=== PATIENT | female | born 1940 | race Caucasian/White ===

== ENCOUNTER 2021-08-04 08:18 | Day surgery (SDC) | payer OTHER, SELFPAY ==
[2021-07-28 14:26] VITALS: BMI 27.3
--- NOTE | 2021-07-31 12:50 | MHC.SHP ---
Pre-Procedural Eval Section A Date of Service: 07/31/21 The patient is an INPATIENT: No Changes since office visit: No Cold of Flu in the past 2 weeks, No New Medical Problems, No Changes in Medication and No Patient answered all questions The History & Physical has been completed within 30 days and I have reviewed it.: Yes Section B Chief Complaint: cataract right eye Allergies: Allergies Allergy/AdvReac Type Severity Reaction Status Date / Time No Known Allergies Allergy Verified 07/28/21 14:16 Plan Diagnosis/Plan: Unchanged I have reviewed the history and physical and performed a pertinent physical examination on my patient. No changes have occurred unless specified.
--- NOTE | 2021-08-01 09:15 | P.CONAN_ITS ---
Documented by User: Naina Hernandez NP 08/01/21 09:15 HPI - Anesthesia Eval Consult details Narrative: 80yo F for Right Cataract Multifocal with IOL Insertion PCP cleared No prev cataract on record [facility] Past Medical History Medical History (Updated 07/28/21 @ 14:29 by Ellyn Richmond RN) COVID-19 vaccine series completed Patient denies medical problems Surgical History Surgical History (Updated 07/28/21 @ 14:14 by Ellyn Richmond RN) H/O colonoscopy Hx of breast biopsy Social History Social History Are you a primary career placement specialist to a significant other at home: No Do you presently have visiting nurse or other home services: No Patient Tobacco Use Status: Never used Tobacco Use of substances other than those prescribed or required for medical reasons: No Have you been hit, kicked, punched, or otherwise hurt by someone within the past year? If so, by whom?: No Are you DNR?: No Advance Directives: No Advance Directives Information Provided: Yes Advance Directives on File: No Recently lost weight without trying: No Eating poorly because of decreased appetite: No Nutrition Risks: Surgical patient >75years Poor oral hygiene: No Meds Allergies Allergy/AdvReac Type Severity Reaction Status Date / Time No Known Allergies Allergy Verified 07/28/21 14:16 Home Medications Medication Instructions Recorded Confirmed Last Taken Type multivitamin 1 tab PO DAILY 07/28/21 07/28/21 Unknown History omega-3 fatty acids-fish oil 684 1 cap PO DAILY 07/28/21 07/28/21 Unknown History mg-1,200 mg capsule,delayed release Exam Exam Date and Time: August 01, 2021 0915 Height,Weight and Vital Signs: Height 5 ft 2.5 in Weight 68.946 kg Assessment and Plan Assessment Anesthesia Assessment: Chart Reviewed Documented by User: Delvin Hendrickson MD 08/04/21 10:30 [facility] Past Medical History Medical History (Updated 07/28/21 @ 14:29 by Ellyn Richmond RN) COVID-19 vaccine series completed Patient denies medical problems Family History Family history of problems with anesthesia: No Surgical History Surgical History (Updated 07/28/21 @ 14:14 by Ellyn Richmond RN) H/O colonoscopy Hx of breast biopsy History of Problems with Anesthesia: No Social History Social History Are you a primary career placement specialist to a significant other at home: No Do you presently have visiting nurse or other home services: No Patient Tobacco Use Status: Never used Tobacco Use of substances other than those prescribed or required for medical reasons: No Have you been hit, kicked, punched, or otherwise hurt by someone within the past year? If so, by whom?: No Are you DNR?: No Advance Directives: No Advance Directives Information Provided: Yes Advance Directives on File: No Recently lost weight without trying: No Eating poorly because of decreased appetite: No Nutrition Risks: Surgical patient >75years Poor oral hygiene: No Meds Allergies Allergy/AdvReac Type Severity Reaction Status Date / Time No Known Allergies Allergy Verified 07/28/21 14:16 Home Medications Medication Instructions Recorded Confirmed Last Taken Type multivitamin 1 tab PO DAILY 07/28/21 07/28/21 Unknown History omega-3 fatty acids-fish oil 684 1 cap PO DAILY 07/28/21 07/28/21 Unknown History mg-1,200 mg capsule,delayed release Exam Airway Mallampati Class: II TM Dist: >3cm Neck ROM: Full Loose/Missing/Broken Teeth: No Heart: [id number] Lungs: cta b/l Assessment and Plan Assessment Anesthesia Assessment: Anesthesia Plan Discussed Final Anesthetic Review Family History of Problems with Anesthesia: No History of Problems with Anesthesia: No NPO: Yes ASA Class: II Final Preanesthetic Review: No Changes in Pt Med Stat, Meds/Allgs Chart Review ed, Consent Obtained/Reviewed and Anes Risks/Benef Reviewed Patient Risk: Intermediate Procedure Risk: Low Assessment/Block/Sedation in SS: Assess/Block/Sedation-SS Anesthetic Plan Anesthetic Plan: MAC: and Agree w/ Assess. and Plan Disposition: Standard PACU
[2021-08-04] MEDS: Lactated Ringers 500 ML 50 ML IV (09:44)
[2021-08-04] MEDS: Tetracaine HCl/PF 0.5% Oph Sol 4 ML DROPS 1 DROP EYE-RIGHT (09:44)
[2021-08-04] MEDS: Phenylephrine HCL 2.5% Oph SoL 2 ML BOTTLE 1 DROP EYE-RIGHT ×3 (09:45→10:00)
[2021-08-04] MEDS: Tropicamide 1 % Ophth Sol 3 ML BTL 1 DROP EYE-RIGHT ×3 (09:46→10:01)
[2021-08-04 09:47] VITALS: BP 156/68; PULSE 64; RESP 18; TEMP 36.3; O2SAT 98
--- NOTE | 2021-08-04 10:50 | HO.PNOPHT ---
Ophthalmology Procedure Procedure Date of Service: 08/04/21 Ophthalmology Viscoelastic: Healon Duet Dual Pack Pro Ophthalmology Lenses: TECNIS [id number] (20.5) Procedure Notes: PREOPERATIVE DIAGNOSIS: Decreased visual acuity right eye secondary to cataract POSTOPERATIVE DIAGNOSIS: Same PROCEDURE: Right cataract extraction with intraocular lens insertion SURGEON: Sergey Bush M.D. ANESTHESIA: Topical/MAC ESTIMATED BLOOD LOSS: None COMPLICATIONS: None After obtaining informed consent, the patient was brought to the operating room suite and placed in the supine position. After adequate sedation per anesthesia, topical drops of Tetracaine were given to the right eye. The eye was then prepped and draped in the usual sterile fashion. The operating room microscope was then positioned over the operative eye and a lid speculum placed. A paracentesis was created. Viscoelastic was then instilled into the anterior chamber. A three plane incision was then created temporally, utilizing a 2.85 mm keratome. Capsulotomy forceps were then utilized to create a circular tear capsulotomy. Hydrodissection and hydrodelineation were carried out until adequate mobilization of the nucleus occurred. Phacoemulsification was then utilized to remove the dense central nucleus followed by removal of the cortical material utilizing the automated aspiration irrigation unit. Viscoelastic was instilled into the posterior capsular bag followed by placement of a posterior chamber intraocular lens without difficulty. The residual Viscoelastic was then removed utilizing the automated IA machine. The wound was checked and found to be watertight. The patient tolerated the procedure well and the lid speculum was removed. Intracameral injection of Vigamox 0.1 mL followed by a subtenon injection of Kenalog-40 0.2 mL were administered. The patient will be seen in the a.m.
[2021-08-04 11:10] VITALS: BP 151/97; PULSE 65; RESP 16; TEMP 36.6; O2SAT 99
== END 2021-08-04 11:26 | disposition home or self-care (01) ==
PROVIDERS: PCP Nurse Practitioner Adult Health; Visit Provider Ophthalmology
PROC: (CPT 66985; principal; 2021-08-04 11:00)
DX: H25.11 Age-related nuclear cataract, right eye (principal); H52.4 Presbyopia
CPT/HCPCS: 66984; J2250; J3300; V2632

== ENCOUNTER 2021-08-18 08:36 | Day surgery (SDC) | payer OTHER, SELFPAY ==
[2021-07-28 14:30] VITALS: BMI 27.3
--- NOTE | 2021-08-15 08:15 | MHC.SHP ---
Pre-Procedural Eval Section A Date of Service: 08/15/21 The patient is an INPATIENT: No Changes since office visit: No Cold of Flu in the past 2 weeks, No New Medical Problems, No Changes in Medication and No Patient answered all questions The History & Physical has been completed within 30 days and I have reviewed it.: Yes Section B Chief Complaint: cataract left eye Allergies: Allergies Allergy/AdvReac Type Severity Reaction Status Date / Time No Known Allergies Allergy Verified 07/28/21 14:16 Plan Diagnosis/Plan: Unchanged I have reviewed the history and physical and performed a pertinent physical examination on my patient. No changes have occurred unless specified.
--- NOTE | 2021-08-15 09:08 | P.CONAN_ITS ---
Documented by User: Naina Hernandez NP 08/15/21 09:11 HPI - Anesthesia Eval Consult details Narrative: 80yo F for Left Cataract Extraction IOL Insertion PCP cleared Right eye 08/04/21 with MAC: Midaz 2 PMFSH Past Medical History Medical History COVID-19 vaccine series completed Patient denies medical problems Family History Family history of problems with anesthesia: No Surgical History Surgical History H/O colonoscopy Hx of breast biopsy History of Problems with Anesthesia: No Social History Social History Are you a primary care transition coordinator to a significant other at home: No Do you presently have visiting nurse or other home services: No Patient Tobacco Use Status: Never used Tobacco Use of substances other than those prescribed or required for medical reasons: No Have you been hit, kicked, punched, or otherwise hurt by someone within the past year? If so, by whom?: No Are you DNR?: No Advance Directives: No Advance Directives Information Provided: No Advance Directives on File: No Recently lost weight without trying: No Eating poorly because of decreased appetite: No Nutrition Risks: Surgical patient >75years Poor oral hygiene: No Meds Allergies Allergy/AdvReac Type Severity Reaction Status Date / Time No Known Allergies Allergy Verified 08/18/21 09:22 Home Medications Medication Instructions Recorded Confirmed Last Taken Type multivitamin 1 tab PO DAILY 07/28/21 07/28/21 Unknown History omega-3 fatty acids-fish oil 684 1 cap PO DAILY 07/28/21 07/28/21 Unknown History mg-1,200 mg capsule,delayed release Exam Exam Date and Time: August 15, 2021 0908 Height,Weight and Vital Signs: Height 5 ft 2.5 in Weight 68.946 kg Assessment and Plan Assessment Anesthesia Assessment: Chart Reviewed Final Anesthetic Review Family History of Problems with Anesthesia: No History of Problems with Anesthesia: No Documented by User: Tiana Sanchez MD 08/18/21 09:46 PMFSH Past Medical History Medical History COVID-19 vaccine series completed Patient denies medical problems Surgical History Surgical History H/O colonoscopy Hx of breast biopsy Social History Social History Are you a primary care transition coordinator to a significant other at home: No Do you presently have visiting nurse or other home services: No Patient Tobacco Use Status: Never used Tobacco Use of substances other than those prescribed or required for medical reasons: No Have you been hit, kicked, punched, or otherwise hurt by someone within the past year? If so, by whom?: No Are you DNR?: No Advance Directives: No Advance Directives Information Provided: No Advance Directives on File: No Recently lost weight without trying: No Eating poorly because of decreased appetite: No Nutrition Risks: Surgical patient >75years Poor oral hygiene: No Meds Allergies Allergy/AdvReac Type Severity Reaction Status Date / Time No Known Allergies Allergy Verified 08/18/21 09:22 Home Medications Medication Instructions Recorded Confirmed Last Taken Type multivitamin 1 tab PO DAILY 07/28/21 07/28/21 Unknown History omega-3 fatty acids-fish oil 684 1 cap PO DAILY 07/28/21 07/28/21 Unknown History mg-1,200 mg capsule,delayed release Exam Airway Mallampati Class: III TM Dist: >3cm Neck ROM: Full Loose/Missing/Broken Teeth: No Heart: RRR Lungs: CTA Assessment and Plan Final Anesthetic Review NPO: Yes ASA Class: II Final Preanesthetic Review: Meds/Allgs Chart Reviewed, Consent Obtained/Reviewed and Anes Risks/Benef Reviewed Patient Risk: Low Procedure Risk: Low Anesthetic Plan Anesthetic Plan: MAC: Disposition: Standard PACU
[2021-08-18] MEDS: Tetracaine HCl/PF 0.5% Oph Sol 4 ML DROPS 1 DROP EYE-LEFT (09:33)
[2021-08-18 09:34] VITALS: BP 157/74; PULSE 63; RESP 16; TEMP 36.4; O2SAT 98
[2021-08-18] MEDS: Tropicamide 1 % Ophth Sol 3 ML BTL 1 DROP EYE-LEFT ×3 (09:34→09:46)
[2021-08-18] MEDS: Phenylephrine HCL 2.5% Oph SoL 2 ML BOTTLE 1 DROP EYE-LEFT ×3 (09:38→09:50)
[2021-08-18] MEDS: Lactated Ringers 500 ML 50 ML IV (09:53)
--- NOTE | 2021-08-18 10:38 | HO.PNOPHT ---
Ophthalmology Procedure Procedure Date of Service: 08/18/21 Ophthalmology Viscoelastic: Healbeulah Duet Dual Pack Pro Ophthalmology Lenses: TECGUCCI [id number] (21) Procedure Notes: PREOPERATIVE DIAGNOSIS: Decreased visual acuity left eye secondary to cataract POSTOPERATIVE DIAGNOSIS: Same PROCEDURE: Left cataract extraction with intraocular lens insertion SURGEON: Sergey Bush M.D. ANESTHESIA: Topical/MAC ESTIMATED BLOOD LOSS: None COMPLICATIONS: None After obtaining informed consent, the patient was brought to the operation room suite and placed in the supine position. After adequate sedation per anesthesia, topical drops of Tetracaine were given to the left eye. The eye was then prepped and draped in the usual sterile fashion. The operating room microscope was then positioned over the operative eye and a lid speculum placed. A paracentesis was created. Viscoelastic was then instilled into the anterior chamber. A three plane incision was then created temporally, utilizing a 2.85 mm keratome. Capsulotomy forceps were then utilized to create a circular tear capsulotomy. Hydrodissection and hydrodelineation were carried out until adequate mobilization of the nucleus occurred. Phacoemulsification was then utilized to remove the dense central nucleus followed by removal of the cortical material utilizing the automated aspiration irrigation unit. Viscoat elastic was instilled into the posterior capsular bag followed by placement of a posterior chamber intraocular lens without difficulty. The residual Viscoat elastic was then removed utilizing the automated IA machine. The wound was check and found to be watertight. The patient tolerated the procedure well and the lid speculum was removed. Intracameral injection of Vigamox 0.1 mL followed by a subtenon injection of Kenalog-40 0.2 mL were administered. The patient will be seen in the a.m.
[2021-08-18 11:00] VITALS: BP 149/57; PULSE 65; RESP 16; TEMP 36.8; O2SAT 96
== END 2021-08-18 11:16 | disposition home or self-care (01) ==
PROVIDERS: PCP Nurse Practitioner Adult Health; Visit Provider Ophthalmology
PROC: (CPT 66985; principal; 2021-08-18 10:50)
DX: H25.12 Age-related nuclear cataract, left eye (principal); H52.4 Presbyopia; H18.413 Arcus senilis, bilateral; L30.9 Dermatitis, unspecified
CPT/HCPCS: 66984; J2405; J3010; J3300; V2632

== ENCOUNTER 2024-05-29 10:31 | Outpatient (REF) | payer OTHER, SELFPAY ==
[2024-05-29 10:52] VITALS: BP 170/81; PULSE 69; RESP 16; TEMP 36.1; O2SAT 98; BMI 26.2
== END 2024-05-29 10:32 | disposition home or self-care (01) ==
LOC: HO.MS 10:31
PROVIDERS: Visit Provider Ophthalmology
PROC: (CPT 66821; principal; 2024-05-29 13:30)
DX: H26.491 Other secondary cataract, right eye (principal)
CPT/HCPCS: 66821